=== PATIENT | female | born 1985 | race Caucasian/White ===

== ENCOUNTER 2018-08-11 05:55 | Inpatient (IN) | payer BC ==
[2018-08-11] MEDS ORDERED: Oxytocin/Normal Saline 30 UNIT/500 ML BAG IV SCH (06:00)
[2018-08-11] MEDS ORDERED: Sodium Chloride 0.9% 10 ML Syringe FLUSH PRN (06:00)
[2018-08-11] MEDS ORDERED: Tranexamic Acid 1,000 MG in Sodium Chloride 0.9% 100 ML IV PRN (06:00)
[2018-08-11] MEDS ORDERED: Citric Acid/Sodium Citrate Solution 30 ML Cup PO ONE (06:00)
[2018-08-11] MEDS ORDERED: Lactated Ringers 1,000 ML IV SCH (06:00)
[2018-08-11] MEDS ORDERED: ceFAZolin 2 GM in Premix Bag 1 BAG IV ONE (06:00)
[2018-08-11] MEDS: Lactated Ringers 1,000 ML IV SCH ×4 (06:19→17:34)
[2018-08-11] MEDS ORDERED: Oxytocin/Normal Saline 60 UNIT/1,000 ML BAG ONE (07:02)
[2018-08-11] MEDS ORDERED: Carboprost Tromethamine 250 MCG/1 ML Amp IM ONE (09:10)
[2018-08-11] MEDS ORDERED: Misoprostol 400 MCG (4 X 100 MCG TAB) RECTAL PRN (09:10)
[2018-08-11] MEDS ORDERED: Methylergonovine 0.2 MG/1 ML Amp IM PRN (09:10)
[2018-08-11] MEDS ORDERED: ePHEDrine 50 MG/ML SDV IVPUSH PRN (09:10)
[2018-08-11] MEDS ORDERED: diphenhydrAMINE 50 MG/ML SDV IVPUSH PRN (09:10)
[2018-08-11] MEDS ORDERED: Ondansetron 4 MG/2 ML SDV IV PRN (09:10)
[2018-08-11] MEDS ORDERED: Acetaminophen 325 MG Tab PO PRN (09:10)
[2018-08-11] MEDS ORDERED: Naloxone 2 MG/2 ML Syringe IVPUSH PRN (09:10)
[2018-08-11] MEDS ORDERED: Acetaminophen/oxyCODONE 325-5 MG Tab PO PRN (09:10)
[2018-08-11] MEDS ORDERED: Ondansetron 4 MG/2 ML SDV IV ONE (12:29)
[2018-08-11] MEDS ORDERED: Ketorolac 30 MG/ML SDV IVPUSH ONE (12:29)
[2018-08-11] MEDS ORDERED: Lactated Ringers 1,000 ML IV ONE (12:29)
[2018-08-11] MEDS ORDERED: ePHEDrine 50 MG/ML SDV IV ONE (12:29)
[2018-08-11] MEDS ORDERED: Morphine PF 1 MG/ML Amp ONE (12:29)
[2018-08-11] MEDS ORDERED: Dexamethasone 4 MG/ML SDV IV ONE (12:29)
[2018-08-11] MEDS ORDERED: Sodium Bicarbonate 4.2% 2.5 MEQ/5 ML SDV ONE (12:29)
[2018-08-11] MEDS ORDERED: Oxytocin/Normal Saline 30 UNIT/500 ML BAG IV ONE (12:29)
[2018-08-11] MEDS: Ketorolac 30 MG/ML SDV IVPUSH SCH ×2 (14:32→19:59)
[2018-08-11] MEDS: Simethicone 80 MG Tab.Chew PO SCH ×3 (14:32→20:00)
--- NOTE | 2018-08-11 15:16 | OR ---
DATE: 08/11/2018 PROCEDURE PERFORMED: Repeat low-transverse section with vacuum assistance. PREOPERATIVE DIAGNOSES: 1. A 39-2/7th weeks' intrauterine based on date of embryo transfer. 2. 3, para 2-0-0-2. 3. History of depression. 4. 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 5. History of gestational hypertension. 6. History of x2. 7. History of gestational diabetes, prior . 8. Blood type O positive, rubella immune, and group B strep negative. 9. Conceived by in vitro fertilization. POSTOPERATIVE DIAGNOSES: 1. A 39-2/7th weeks' intrauterine based on date of embryo transfer. 2. 3, now para 3-0-0-3. 3. History of depression. 4. 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 5. History of gestational hypertension. 6. History of x2. 7. History of gestational diabetes, prior . 8. Blood type O positive, rubella immune, and group B strep negative. 9. Conceived by in vitro fertilization. SURGEON: Francine Jordan MD. BONDING EQUIPMENT OPERATOR: Rohini Waldrop MD. SECOND LIGHTING TECHNICIAN: Kamari Cortez MS-3. ANESTHESIA: Spinal. BRIEF HISTORY: A 33-year-old, 3, para 2-0-0-2, currently at 39-2/7th weeks' gestation based on embryo transfer date, presented for elective repeat section. Please review admission history and physical for full details. The patient given the option for attempt at vaginal delivery after and declined. CONSENT: Discussed indications, risks, benefits, and alternatives with the patient and her . Appropriate consent forms have been signed and are on the chart. Discussed potential risk for infection and plan for preoperative antibiotics; potential for blood loss requiring blood transfusion as well as its inherent risks; risk of injury to any internal organs or adjacent structures including, but not limited to bowel, bladder, fallopian tubes, uterus, baby, and any other adjacent structures and plans for how repair would be done if necessary; potential for complications leading to the requirement to transfer of mother and/or baby to a larger facility. DETAILS OF PROCEDURE: The patient was taken to the operating room and spinal anesthesia obtained. She was laid in dorsal supine position with leftward tilt and Shirley indwelling catheter was placed. After that, she was tested and skin incision was made in the low Pfannenstiel location through the uterine scar at 7:57 a.m. and carried down to the underlying fascia using cautery and sharp dissection. Fascia was incised in the midline and extended bilaterally using cautery and Shay scissors. Superior fascia was then grasped with Justus's, tented up, and rectus muscles dissected off with scissors. Inferior fascial edge was then grasped with Justus's, tented up, and the fascia dissected off with scissors as well. The peritoneal cavity was entered with hemostats and extended with manual traction and blunt finger dissection to get through the peritoneum. There was stringy scarring noted on the uterus, and Kamari retractor was placed after creation of a bladder flap using Metzenbaum scissors. Appropriate location for hysterotomy site was identified and made with scalpel. The baby's head was felt to be quite large, therefore vacuum assistance called for and baby delivered at 8:08 a.m. via vacuum-assisted . 's mouth and nose were bulb suctioned, and 3-vessel umbilical cord was doubly clamped and cut. Baby was dried, stimulated, taken to the warmer for initial evaluation before going skin to skin with mother. Cord blood sample was obtained, and placenta was delivered by gentle cord traction and concomitant uterine massage. The uterine cavity was cleared of all clots and debris, and hysterotomy site was closed with a running locked suture of 0 Vicryl in the usual fashion. This layer was not hemostatic, so a second imbricating layer of 0 Vicryl was used in the usual fashion with result of good hemostasis. The Kamari was then removed and paracolic gutters cleared of all clots and debris. Hysterotomy site reinspected and remained hemostatic. This layer was then irrigated and next, the peritoneal and muscle layers were closed with a single [id number] suture at the base for reapproximation. This layer then irrigated and fascial layer closed with a running stitch of 0 looped PDS in the usual fashion. Subcutaneous tissues were then irrigated, cleared off all clots and debris, and small bleeders controlled with cautery. The skin was then closed with a running stitch of 4-0 Monocryl on a Anjel needle. The patient tolerated the procedure well and end time was 8:49 a.m. COMPLICATIONS: None. ESTIMATED BLOOD LOSS: 700 mL. URINE OUTPUT: 50 mL, clear. FLUIDS: 1500 mL of crystalloids and 200 mL with Pitocin. DISPOSITION: Mother and baby are in good condition. They will be reunited in the PACU for continued skin to skin and to initiate breast-feeding. [facility] /[id number] RAY
[2018-08-11] MEDS: Docusate Sodium 100 MG Cap PO PRN (20:00)
[2018-08-12] MEDS: Acetaminophen/oxyCODONE 325-5 MG Tab PO PRN ×5 (02:45→20:53)
[2018-08-12] MEDS: Ketorolac 30 MG/ML SDV IVPUSH SCH (02:45)
[2018-08-12] MEDS: Prenatal Multivitamin with Calcium/Folic Acid/Iron Tab PO SCH (08:46)
[2018-08-12] MEDS: Simethicone 80 MG Tab.Chew PO SCH ×4 (08:46→20:53)
[2018-08-12] MEDS: Docusate Sodium 100 MG Cap PO PRN ×2 (08:46→20:53)
[2018-08-12] MEDS: Ferrous Sulfate 325 MG Tab PO SCH (08:50)
--- NOTE | 2018-08-12 11:25 | PN ---
DATE: 08/12/2018 SUBJECTIVE: Magdalena is a postoperative day 1 from repeat low-transverse C- section of a term male at 39 weeks and 2 days. She has no complaints overnight. She is tolerating some activity, eating. Urinary catheter is still in place. She has passed flatus, but has not had a bowel movement yet. She is and it is going well. She has minimal cramping. Some bleeding when . OBJECTIVE: Vital Signs: Temp 98.4, pulse 84, blood pressure 127/71, respiratory rate 16, O2 saturation 99%. General: The patient is alert, cooperative, in no acute distress. HEENT: Grossly normal. Heart: Regular rate and rhythm. Lungs: Clear to auscultation bilaterally. Abdomen: Uterus is palpated 2 cm below the umbilicus. Soft abdomen. Nontender and nondistended. Extremities: Trace edema bilaterally. Compression stockings are on right now. Calves are nontender to palpation. Neurologic: Range of motion and strength in extremities are unremarkable. ASSESSMENT: Magdalena is postoperative day 1 from repeat low-transverse of a term male at 39 weeks and 2 days. PLAN: 1. Continue routine cares. 2. . The patient was seen by myself and Dr. Francine Samuel. The assessment and plan are under advisement of Dr. Samuel. Kamari Cortez MS-III [facility] /[id number] Patient seen and examined. Agree with note as scribed on my behalf by Kamari Cortez, MS 3. -[facility] 08/15/18 0539 MTDD
[2018-08-12] MEDS: Ibuprofen 800 MG Tab PO PRN ×2 (12:28→20:54)
[2018-08-13] MEDS: Acetaminophen/oxyCODONE 325-5 MG Tab PO PRN ×5 (01:33→21:23)
[2018-08-13] MEDS: Ibuprofen 800 MG Tab PO PRN ×3 (05:03→21:23)
--- NOTE | 2018-08-13 07:37 | PN ---
DATE: 08/13/2018 SUBJECTIVE: Magdalena is postoperative day 2 from repeat low-transverse of a term male at 39 weeks and 2 days. She has no complaints overnight. She is tolerating activity, eating, and urinating. She has passed flatus, but has not had a bowel movement yet. She is and it is going well. She has minimal cramping and some bleeding, both of which are mostly just with . OBJECTIVE: Vital Signs: Temperature 97.7, pulse rate 82, blood pressure 130/80, and oxygen saturation 100%. General: The patient is alert, cooperative, in no acute distress. HEENT: Grossly normal. Heart: Regular rate and rhythm. Lungs: Clear to auscultation bilaterally. Abdomen: Uterus is palpated 2 cm below the umbilicus. Soft abdomen. Nontender and nondistended. incision is clean, dry and intact. Extremities: No edema bilaterally. Compression stockings are on. Calves are nontender to palpation. Neurologic: Range of motion and strength in extremities are unremarkable. ASSESSMENT: Magdalena is postoperative day 1 from repeat low transverse section of a term male infant at 39 weeks and 2 days. PLAN: 1. Continue routine cares. 2. . 3. Planning on discharge tomorrow. The patient was seen by myself and Dr. Francine Samuel. The assessment and plan are under advisement of Dr. Samuel. Kamari Cortez, -III [facility] /[id number] Patient seen and examined. Agree with note as scribed on my behalf by Kamari Cortez, MS 3. -[facility] 08/15/18 0540 MTDD
[2018-08-13] MEDS: Simethicone 80 MG Tab.Chew PO SCH ×4 (08:37→21:23)
[2018-08-13] MEDS: Docusate Sodium 100 MG Cap PO PRN ×2 (08:37→21:23)
[2018-08-13] MEDS: Prenatal Multivitamin with Calcium/Folic Acid/Iron Tab PO SCH (08:37)
[2018-08-13] MEDS: Ferrous Sulfate 325 MG Tab PO SCH (08:38)
[2018-08-13 22:16] VITALS: PULSE 78
[2018-08-14] MEDS: Acetaminophen/oxyCODONE 325-5 MG Tab PO PRN ×3 (02:39→12:52)
[2018-08-14] MEDS: Ibuprofen 800 MG Tab PO PRN (06:25)
[2018-08-14] MEDS: Ferrous Sulfate 325 MG Tab PO SCH (10:12)
[2018-08-14] MEDS: Simethicone 80 MG Tab.Chew PO SCH ×2 (10:12→12:52)
[2018-08-14] MEDS: Prenatal Multivitamin with Calcium/Folic Acid/Iron Tab PO SCH (10:12)
[2018-08-14] MEDS: Docusate Sodium 100 MG Cap PO PRN (10:14)
[2018-08-14 19:48] VITALS: BP 132/86
--- NOTE | 2018-09-04 14:57 | DISCH ---
ADMISSION DIAGNOSES: 1. resulting from in vitro fertilization in the third trimester. 2. History of loop electrosurgical excision procedure of cervix affecting in the third trimester. 3. History of gestational hypertension. 4. History of section. 5. Blood type O positive, rubella immune, group B strep negative. 6. History of gestational diabetes, prior . 7. History of depression. DISCHARGE DIAGNOSES: 1. resulting from in vitro fertilization in the third trimester. 2. History of loop electrosurgical excision procedure of cervix affecting in the third trimester. 3. History of gestational hypertension. 4. History of section. 5. Blood type O positive, rubella immune, group B strep negative. 6. History of gestational diabetes, prior . 7. History of depression. 8. Transient hypertension in hospital. 9. Anemia of blood loss from surgery. 10.Status post repeat low-transverse section without complication. BRIEF HISTORY: A 33-year-old female presented to the hospital for elective repeat section at term. Procedure was carried out without complications. See operative report for full details. HOSPITAL COURSE: Good. The patient has been fairly independent since the day after surgery performed. She has been ambulating, tolerating regular diet. Bleeding has been controlled. She has had no issues with voiding. She did pass a bowel movement prior to discharge. She has been independently and denies any acute concerns. She is well aware to watch for signs and symptoms of depression, none of which have developed at the time of discharge. DISCHARGE CONDITION: Good. PHYSICAL EXAMINATION: Vital Signs: Temperature is 98.6, pulse 78, blood pressure 132/86. Maximum blood pressure had been 141/95. Respiratory rate 16, O2 saturations 99% on room air. Heart: Regular without murmur. Lungs: Clear to auscultation bilaterally. Abdomen: Soft, nontender. Fundus was firm and below the umbilicus. Incision site was clean, dry, and intact with Steri-Strips in place. Extremities: Trace edema. No erythema or tenderness noted. PERTINENT LABORATORY DATA: Admission hemoglobin of 12.9, platelets of 326. Discharge hemoglobin of 10.6 and platelets of 266. DISPOSITION: Home with family. MEDICATIONS: 1. Percocet 1-2 tablets every 4-6 hours as needed for pain, dispensing 30 with no refills. 2. Iron 325 mg twice daily. 3. Ibuprofen 800 mg every 8 hours as needed for pain. 4. vitamin, continue 1 daily. 5. Colace 100 mg twice daily as needed for constipation. FOLLOWUP: She will be seen in the next 2 weeks for postoperative check and then at her 6-week exam. INSTRUCTIONS: Routine postoperative care for mother. Instructions were discussed with her and she verbalized understanding. Appointments have already been made for her at the clinic. The patient is also well aware to continue monitoring her blood pressures and notify the office if she has any problems or difficulties in the coming weeks. [facility] /[id number]
== END 2018-08-14 14:40 | disposition home or self-care (01) | DRG 540 ==
LOC: DL.MS 05:55 → OBSVTOIN 08:08 → DL.MS 08:08
PROVIDERS: ADMIT Family Medicine; ATTEND Family Medicine
PROC: 10D00Z1 Extraction of Products of Conception, Low, Open Approach (ICD-10-PCS; principal; 2018-08-11)
DX: O34.211 Maternal care for low transverse scar from previous cesarean delivery (principal); Z3A.39 39 weeks gestation of pregnancy; Z37.0 Single live birth
CPT/HCPCS: 36415; 59025; 85025; 85027; 86850; 86900; 86901; 94010; A9270-GY; J0690; J1100; J1885; J2274; J2405; J2590; J7120

== ENCOUNTER 2024-01-28 19:48 | Emergency (ER) | payer BC ==
[2024-01-28 20:22] VITALS: BP 127/90; PULSE 95
[2024-01-28] MEDS: Acetaminophen 325 MG Tab PO ONE (20:34)
[2024-01-28] MEDS: Ondansetron 4 MG Tab.DIS PO ONE (20:34)
[2024-01-28] MEDS: Acetaminophen/HYDROcodone 325-10 MG Tab PO ONE (20:35)
== END 2024-01-28 21:19 | disposition home or self-care (01) ==
LOC: DL.ED 19:48
DX: S82.55XA Nondisplaced fracture of medial malleolus of left tibia, initial encounter for closed fracture (principal); Z79.1 Long term (current) use of non-steroidal anti-inflammatories (NSAID); Z79.899 Other long term (current) drug therapy; X50.1XXA Overexertion from prolonged static or awkward postures, initial encounter; Y93.68 Activity, volleyball (beach) (court)
CPT/HCPCS: 29515; 73610-LT; 99283-25; A9270-GY